=== PATIENT | female | born 1985 | race Caucasian/White ===

== ENCOUNTER 2024-04-10 18:54 | Emergency (ER) | payer SELFPAY ==
[2024-04-10] MEDS ORDERED: diphenhydrAMINE 25 MG CAP ONE (19:29)
[2024-04-10] MEDS ORDERED: Famotidine 20 MG TAB ONE (19:29)
[2024-04-10] MEDS ORDERED: predniSONE 20 MG TAB ONE (19:29)
== END 2024-04-10 20:50 | disposition home or self-care (01) ==
LOC: ERS 18:54
DX: T78.40XA Allergy, unspecified, initial encounter (principal)
CPT/HCPCS: 99282; J7512